=== PATIENT | female | born 1950 | race American Indian/Alaskan Native ===

== ENCOUNTER 2016-04-18 07:00 | Day surgery (SDC) | payer MEDICARE ==
--- NOTE | 2016-04-18 07:49 | Anesthesia Consultation ---
Anesthesia Consult and Med Hx Date of service: 04/18/16 - Airway Anesthetic Teeth Evaluation: Poor (missing), Chipped ROM Head & Neck: Adequate Mental/Hyoid Distance: Adequate Mallampati Class: Class I Intubation Access Assessment: Good - Pulmonary Exam CTA: Yes - Cardiac Exam Anesthetic Concerns: irregular - Pre-Operative Health Status ASA Pre-Surgery Classification: ASA3 Proposed Anesthetic Plan: MAC - Pre-Anesthesia Comment Pre-Anesthesia Comments: Chrons Disease - Cardiovascular System Hx Hypertension: Yes (Coreg taken this am ) - Central Nervous System Hx Back Pain: Yes (Arthiritis ) - Endocrine Hx Non-Insulin Dependent Diabetes: Yes
--- NOTE | 2016-04-18 07:54 | Anesthesia Day of Surgery ---
Anesthesia Day of Surgery - Day of Surgery Patient Examined: Yes Patient H&P Reviewed: Yes Patient is NPO: Yes Beta Blockers: Yes
[2016-04-18] MEDS ORDERED: NACL 0.9% 1000 ML 1,000 ML IV SCH (08:00)
--- NOTE | 2016-04-18 09:13 | Post Operative Note ---
Pre-op diagnosis: diarrhea, abd pain, ?h/o crohn's disease Post-op diagnosis: other (poor prep, but mucosa appeared normal including terminal ileum) Findings: poor prep, but normal appearing colon and terminal ileum. no obvious signs of IBD. Procedure: colonoscopy Anesthesia: MAC Surgeon: CIERRA DIAZ Estimated blood loss: minimal Pathology: list (terminal ileum biopsies) Specimen disposition: to lab Condition: stable
--- NOTE | 2016-04-18 09:24 | Post Anesthesia Evaluation ---
- Post Anesthesia Evaluation Patient Participated: Yes Airway Patent: Yes Stable Respiratory Function: Yes Nausea/Vomiting: No Temp > 96.8F: Yes Pain Manageable: Yes Adequeate Hydration: Yes Anesthesia Complications: No Block Receding Appropriately: Not Applicable Patient on Ventilator: No
[2016-04-18 09:43] VITALS: BP 106/68
--- NOTE | 2016-04-18 10:54 | Operative Report ---
PREOPERATIVE DIAGNOSIS: Diarrhea, abdominal pain, questionable history of Crohn's disease. POSTOPERATIVE DIAGNOSES: Poor prep, normal-appearing mucosa in the colon and terminal ileum. ANESTHESIA: Monitored anesthesia care. ESTIMATED BLOOD LOSS: Minimal. COMPLICATIONS: No immediate complications. DESCRIPTION OF PROCEDURE: After consent was obtained, the patient was placed in left lateral decubitus position and standard Fujinon colonoscope was advanced with ease to the terminal ileum. The patient tolerated the procedure well. The views of the mucosa were fair. The quality of prep was poor. FINDINGS: The mucosa in the colon and terminal ileum appeared normal without any obvious signs of IBD. The prep was poor, but no significant lesions were detected. Random biopsies were taken from the terminal ileum. IMPRESSION: Normal colonoscopy without obvious signs of inflammatory bowel syndrome. Poor prep limited detail views of mucosa, so small lesions may have been missed. RECOMMENDATIONS: 1. Followup in GI Clinic as scheduled. 2. Continue surveillance colonoscopy for history of polyp. Given poor prep, consider repeating in 1 year. [facility]# [id number] ANSLEY/ES GUTIERREZ
[2016-04-18] MEDS ORDERED: XYLOCAINE MPF 2% ONE (12:35)
== END 2016-04-18 07:01 | disposition home or self-care (01) ==
LOC: GIO 07:00
PROVIDERS: ATTEND Internal Medicine Gastroenterology
DX: R19.7 Diarrhea, unspecified (principal); R10.84 Generalized abdominal pain; I10 Essential (primary) hypertension; E11.9 Type 2 diabetes mellitus without complications; F17.210 Nicotine dependence, cigarettes, uncomplicated; M19.90 Unspecified osteoarthritis, unspecified site; Z98.51 Tubal ligation status; Z98.890 Other specified postprocedural states; Z80.42 Family history of malignant neoplasm of prostate; Z83.3 Family history of diabetes mellitus; Z82.49 Family history of ischemic heart disease and other diseases of the circulatory system; Z83.71 Family history of colonic polyps; Z83.79 Family history of other diseases of the digestive system; Z72.89 Other problems related to lifestyle
CPT/HCPCS: 45380; 88305; J7030

== ENCOUNTER 2016-04-30 09:08 | Outpatient (CLI) | payer MEDICARE ==
--- NOTE | 2016-04-30 12:20 | Fluoroscopy Report ---
UPPER GI SERIES WITH SMALL BOWEL FOLLOW-THROUGH History: Crohn's disease, abdominal pain Findings: 37 fluoroscopic images were obtained. Deglutition is normal. The esophagus is normal caliber and mucosal pattern throughout. There is no evidence for hiatal hernia or reflux disease. Normal motility. There is a subtle area of mucosal nodularity and narrowing in the antrum of the stomach. This does not obstruct. This may be related to Crohn's disease. Peptic ulcer disease could also be considered. Recommend correlation with endoscopy. The remainder of the stomach is unremarkable. The duodenal bulb and duodenal sweep are normal. No mass, abnormal dilatation or mucosal thickening. Transit time through the small bowel loops is within normal limits at less than 60 minutes. The duodenum, jejunum and ileum are normal caliber and mucosal pattern. Fluoroscopic spot shots of the terminal ileum are normal. No lesions consistent with Crohn's disease are appreciated in the small bowel. Impression: Questionable area of nodularity in the antrum of the stomach which could be related to Crohn's disease or peptic ulcer disease. See above. Normal small bowel follow-through.
== END 2016-04-30 09:09 | disposition home or self-care (01) ==
LOC: FLUORO 09:08
PROVIDERS: ATTEND Internal Medicine Gastroenterology
DX: K50.90 Crohn's disease, unspecified, without complications (principal); R10.84 Generalized abdominal pain
CPT/HCPCS: 74249

== ENCOUNTER 2016-05-15 12:48 | Outpatient (CLI) | payer MEDICARE ==
[2016-05-15 13:23] LABS: Hematocrit 39.1 % (30.3-42.9); Hemoglobin 12.9 gm/dl (10.1-14.3); Mean Corpuscular HGB Conc 33 % (30-34); Mean Corpuscular Hemoglobin 30 pg (28-32); Mean Corpuscular Volume 90 fl (79-97); Platelet Count 381 K/mm3 (140-440); Red Blood Count 4.36 M/mm3 (3.65-5.03); Red Cell Distribution Width 14.1 % (13.2-15.2); White Blood Count 8.9 K/mm3 (4.5-11.0)
[2016-05-15 13:50] LABS: Alanine Aminotransferase 18 units/L (7-56); Albumin 4.2 g/dL (3.9-5); Alkaline Phosphatase 114 units/L (35-129); Anion Gap 17 mmol/L; BUN/Creatinine Ratio 14.44; Bilirubin,Total 0.3 mg/dL (0.1-1.2); Blood Urea Nitrogen 13 mg/dL (7-17); Calcium 9.7 mg/dL (8.4-10.2); Carbon Dioxide 25 mmol/L (22-30); Chloride 101.9 mmol/L (98-107); Glucose 109 mg/dL (65-100); Potassium 3.7 mmol/L (3.6-5.0); Sodium 140 mmol/L (137-145); Total Protein 8.4 g/dL (6.3-8.2)
[2016-05-15 13:53] LABS: Erythrocyte Sedimentation Rate 45 mm/Hr (0-20)
== END 2016-05-15 12:49 | disposition home or self-care (01) ==
LOC: LAB 12:48
PROVIDERS: ATTEND Internal Medicine Gastroenterology
DX: K50.90 Crohn's disease, unspecified, without complications (principal); R10.84 Generalized abdominal pain
CPT/HCPCS: 36415; 80053; 85027; 85652; 86140; 86706

== ENCOUNTER → 2016-05-16 | Day surgery (SDC) | payer MEDICARE ==
[~2016-05-16] MED LIST: DIPRIVAN 10 MG/ML IV ONE; NACL 0.9% 1000 ML 1,000 ML IV SCH; NACL 0.9% 1000 ML 1,000 ML ONE; XYLOCAINE MPF 2% ONE
--- NOTE | 2016-05-16 13:27 | Anesthesia Day of Surgery ---
Anesthesia Day of Surgery - Day of Surgery Patient Examined: Yes Patient H&P Reviewed: Yes Patient is NPO: Yes Beta Blockers: Yes Cardiac Clearance: No Pulmonary Clearance: No
--- NOTE | 2016-05-16 13:27 | Anesthesia Consultation ---
Anesthesia Consult and Med Hx Date of service: 05/16/16 - Airway Anesthetic Teeth Evaluation: Good ROM Head & Neck: Adequate Mental/Hyoid Distance: Adequate Mallampati Class: Class II Intubation Access Assessment: Probably Good - Pulmonary Exam CTA: Yes - Cardiac Exam Cardiac Exam: RRR - Pre-Operative Health Status ASA Pre-Surgery Classification: ASA3 Proposed Anesthetic Plan: MAC - Pulmonary Hx Smoking: Yes (patient reports that she quit 2 months ago) COPD: Yes - Cardiovascular System Hx Hypertension: Yes (Coreg taken this am ) - Central Nervous System Hx Neuromuscular Disorder: Yes (right sciatica; peripheral neuropathy) Hx Back Pain: Yes (Arthiritis ) - Gastrointestinal Hx Gastroesophageal Reflux Disease: Yes - Endocrine Hx Insulin Dependent Diabetes: Yes
[2016-05-17 11:49] VITALS: BP 111/61
--- NOTE | 2016-05-23 09:05 | Post Operative Note ---
Pre-op diagnosis: dyspepsia Post-op diagnosis: other (small gastric erosions, otherwise unremarkable) Findings: Esophagus appeared normal Stomach: small gastric erosions in gastric body otherwise unremarkable. Random biopsies were obtained. Duodenum appeared normal. Procedure: EGD Anesthesia: MAC Surgeon: CIERRA DIAZ Estimated blood loss: minimal Pathology: list (gastric biopsies) Specimen disposition: to lab Condition: stable Disposition: same day
--- NOTE | 2016-05-23 09:55 | Operative Report ---
PROCEDURE: EGD. PREOPERATIVE DIAGNOSIS AND INDICATIONS: Dyspepsia and abdominal pain. POSTOPERATIVE DIAGNOSES: Small gastric erosion, otherwise unremarkable EGD. ANESTHESIA: Monitored anesthesia care. COMPLICATIONS: No immediate complications. ESTIMATED BLOOD LOSS: Minimal. DESCRIPTION OF PROCEDURE: After consent was obtained, the patient was placed in left lateral decubitus position. Standard upper Fujinon scope was advanced with direct vision through the mouth into the second portion of duodenum with ease. The views of mucosa were good. The patient tolerated the procedure well. FINDINGS: Esophagus appeared normal. There is a small gastric erosion in the gastric body. Otherwise, the stomach appeared normal. Random gastric biopsies were obtained to rule out H. pylori. Duodenum appeared normal. IMPRESSION: Small gastric erosion, otherwise unremarkable EGD. RECOMMENDATIONS: 1. Follow up pathology. 2. Avoid NSAID medications. 3. Return to GI clinic in 1 month. JOB# [id number] ANSLEY/ES GUTIERREZ
== END ==
LOC: GIO 06:00
PROVIDERS: ATTEND Internal Medicine Gastroenterology
DX: K29.50 Unspecified chronic gastritis without bleeding (principal); J44.9 Chronic obstructive pulmonary disease, unspecified; I10 Essential (primary) hypertension; E11.42 Type 2 diabetes mellitus with diabetic polyneuropathy; K21.9 Gastro-esophageal reflux disease without esophagitis; M19.90 Unspecified osteoarthritis, unspecified site; M54.30 Sciatica, unspecified side; Z87.891 Personal history of nicotine dependence
CPT/HCPCS: 43239; 82962; J2704; J7030; 88305; 88342

== ENCOUNTER 2017-04-25 08:08 | Outpatient (CLI) | payer MEDICAID, MEDICARE ==
--- NOTE | 2017-04-25 15:49 | Ultrasound Report ---
FINAL REPORT EXAM: US ABDOMEN LIMITED HISTORY: ELEVATED LIVER ENZYMES TECHNIQUE: Grayscale and color doppler ultrasound imaging of the right upper quadrant was performed. PRIORS: None. FINDINGS: Liver: The liver is increased in echogenicity. No focal hepatic lesions or intrahepatic biliary ductal dilation. Gallbladder/Biliary system: No cholelithiasis, gallbladder wall thickening or pericholecystic fluid. Sludge is seen within the gallbladder. The common bile duct measures 5.4 millimeters. Right kidney: The right kidney is normal in echogenicity without hydronephrosis, cyst, mass or calcification. The right kidney measures 10.3 x 4.4 x 5.0 centimeters. Pancreas: The visualized portions of the pancreas demonstrate no focal lesion. Aorta/IVC: The visualized portions of the abdominal aorta and IVC are normal in caliber. Free fluid: None. IMPRESSION: 1. Hepatic steatosis. 2. Gallbladder sludge. No ultrasound evidence of acute cholecystitis.
== END 2017-04-25 08:09 | disposition home or self-care (01) ==
LOC: US 08:08
PROVIDERS: ATTEND Family Medicine
DX: K76.0 Fatty (change of) liver, not elsewhere classified (principal); R74.8 Abnormal levels of other serum enzymes
CPT/HCPCS: 76705

== ENCOUNTER 2017-08-09 09:36 | Outpatient (CLI) | payer MEDICARE ==
[2017-08-09] MEDS ORDERED: KINEVAC IV ONE (11:07)
[2017-08-09] MEDS ORDERED: WATER FOR INJ (PF) 10 ML ONE (11:09)
[2017-08-09] MEDS ORDERED: WATER FOR INJ (PF) IV ONE (11:11)
--- NOTE | 2017-08-09 13:53 | Nuclear Medicine Report ---
Hepatobiliary scan: Examination performed with 5 mCi technetium 99m Choletec. History: Diarrhea nausea abdominal pain. Findings: Uniform distribution of activity is noted in the liver with subsequent clearance into the biliary system. The gallbladder is visualized. No persistence of activity is noted in liver with activity noted in the duodenum with a normal time. Post CCK ejection fraction is 15%. Impression: No cystic or common bile duct obstruction. Ejection fraction 15%.
== END 2017-08-09 09:37 | disposition home or self-care (01) ==
LOC: NM 09:36
PROVIDERS: ATTEND Internal Medicine Gastroenterology
DX: K21.9 Gastro-esophageal reflux disease without esophagitis (principal); R19.7 Diarrhea, unspecified
CPT/HCPCS: 78227; A9537; J2805

== ENCOUNTER 2019-02-23 12:22 | Emergency (ER) | payer MEDICARE ==
--- NOTE | 2019-02-23 13:26 | Emergency Department Report ---
Blank Doc - Documentation Documentation: 69-year-old female that presents with headache, body aches, and weakness. This initial assessment/diagnostic orders/clinical plan/treatment(s) is/are subject to change based on patient's health status, clinical progression and re- assessment by fellow clinical providers in the ED. Further treatment and workup at subsequent clinical providers discretion. Patient/guardians urged not to elope from the ED as their condition may be serious if not clinically assessed and managed. Initial orders include: 1- Patient sent to MAIN ED for further evaluation and treatment 2- labs 3- UA
[2019-02-23 13:27] VITALS: BP 115/58
[2019-02-23 13:55] LABS: Basophils # (Auto) 0.1 K/mm3 (0.0-0.1); Basophils % (Auto) 0.9 % (0.0-1.8); Eosinophils # (Auto) 0.2 K/mm3 (0.0-0.4); Eosinophils % (Auto) 1.6 % (0.0-4.3); Hematocrit 37.9 % (30.3-42.9); Hemoglobin 12.6 gm/dl (10.1-14.3); Lymphocytes # (Auto) 1.8 K/mm3 (1.2-5.4); Lymphocytes % (Auto) 19.5 % (13.4-35.0); Mean Corpuscular HGB Conc 33 % (30-34); Mean Corpuscular Volume 91 fl (79-97); Monocytes # (Auto) 0.7 K/mm3 (0.0-0.8); Monocytes % (Auto) 7.2 % (0.0-7.3); Platelet Count 404 K/mm3 (140-440); Red Blood Count 4.16 M/mm3 (3.65-5.03); Red Cell Distribution Width 13.5 % (13.2-15.2)
[2019-02-23 14:17] LABS: Alanine Aminotransferase 9 units/L (7-56); Albumin 4.3 g/dL (3.9-5); BUN/Creatinine Ratio 10; Blood Urea Nitrogen 10 mg/dL (7-17); Calcium 9.8 mg/dL (8.4-10.2); Hemolysis Index 3
--- NOTE | 2019-02-23 14:23 | Emergency Department Report ---
HPI - General Chief Complaint: Weakness Time Seen by Provider: 02/23/19 13:23 - HPI HPI: 69-year-old Esme female presents to the emergency department with complaint of a one-week history of some chills and sweats, diarrhea, abdominal pain, headache and very low back pain. At this time her main complaint is the low back pain. She denies any urinary retention, numbness or paresthesias, or any neurological deficits. She also still has a mild generalized headache. No fever. She has a past medical history of arthritis, COPD, GERD, hypertension. Her primary care physician is a Dr. Mena but she has not seen them regarding her symptoms. No recent travel or sick contacts at home. ED Past Medical Hx - Past Medical History Previous Medical History?: Yes Hx Hypertension: Yes (Coreg taken this am ) Hx GERD: Yes Hx Arthritis: Yes Hx COPD: Yes - Surgical History Past Surgical History?: Yes Hx Cholecystectomy: Yes - Social History Smoking Status: Never Smoker Substance Use Type: None - Medications Home Medications: Home Medications Medication Instructions Recorded Confirmed Last Taken Type Bc Arthritis Powder Packet 65 mg PO PRN PRN 04/17/16 05/17/16 Unknown History Calcium 500 mg PO DAILY 04/17/16 05/17/16 04/17/16 History Carvedilol 12.5 mg PO DAILY 04/17/16 05/17/16 05/16/16 History Cod Liver Oil 1 cap PO DAILY 04/17/16 05/17/16 04/17/16 History Gabapentin 600 mg PO DAILY 04/17/16 05/17/16 05/09/16 History Omeprazole 40 mg PO DAILY 04/17/16 05/17/16 05/14/16 History Potassium Gluconate 1 tab PO DAILY 04/17/16 05/17/16 04/16/16 History Promethazine 25 mg PO DAILY 04/17/16 05/17/16 04/16/16 History Triamter/Hctz 37.5-25 mg 1 tab PO DAILY 04/17/16 05/17/16 Unknown History Vitamin D3 1 tab PO DAILY 04/17/16 05/17/16 04/17/16 History metFORMIN 500 mg PO DAILY 04/17/16 05/17/16 05/15/16 History oxyCODONE 15 mg PO PRN PRN 04/17/16 05/17/16 Unknown History amLODIPine 5 mg PO DAILY 04/18/16 05/17/16 05/16/16 History 0400 ED Review of Systems ROS: Stated complaint: BODY ACHE/DIARRHEA/FATIQUE Other details as noted in HPI Constitutional: chills, diaphoresis Eyes: denies: eye pain, vision change ENT: denies: ear pain, throat pain Respiratory: denies: cough, shortness of breath Cardiovascular: denies: chest pain, palpitations Gastrointestinal: abdominal pain, diarrhea Genitourinary: denies: dysuria, discharge Musculoskeletal: back pain. denies: arthralgia Skin: denies: rash, lesions Neurological: headache. denies: numbness, paresthesias Physical Exam - Physical Exam Vital Signs: Vital Signs 02/23/19 13:25 Temperature 98.6 F Pulse Rate 84 Respiratory 20 Rate Blood Pressure 115/58 O2 Sat by Pulse 96 Oximetry Physical Exam: GENERAL: The patient is well-developed well-nourished. HENT: Normocephalic. Atraumatic. Patient has moist mucous membranes. EYES: Extraocular motions are intact. Pupils equal reactive to light bilaterally. No nystagmus. NECK: Supple. Trachea is midline. CHEST/LUNGS: Clear to auscultation. There is no respiratory distress noted. HEART/CARDIOVASCULAR: Regular. There is no tachycardia. There is no murmur. ABDOMEN: Abdomen is soft, nontender. Patient has normal bowel sounds. There is no abdominal distention. SKIN: Skin is warm and dry. NEURO: The patient is awake, alert, and oriented. The patient is cooperative. The patient has no focal neurologic deficits. Normal speech. Cranial nerves II through XII grossly intact. MUSCULOSKELETAL: There is no tenderness or deformity. There is no limitation range of motion. There is no evidence of acute injury. BACK: There is no midline thoracic or lumbar tenderness to palpation, step-off or deformity. The patient has some reproducible lumbar paraspinal and sacral tenderness to palpation but no obvious deformity. ED Course Vital Signs 02/23/19 13:25 Temperature 98.6 F Pulse Rate 84 Respiratory 20 Rate Blood Pressure 115/58 O2 Sat by Pulse 96 Oximetry ED Medical Decision Making - Lab Data Result diagrams: 02/23/19 13:43 02/23/19 13:43 - Radiology Data Radiology results: report reviewed CT HEAD WITHOUT CONTRAST INDICATION / CLINICAL INFORMATION: Headache for 24 hours.. TECHNIQUE: Axial imaging performed from the skull apex through the skull base without the use of contrast. Sagittal and coronal reformatted images. All CT scans at this location are performed using CT dose reduction for ALARA by means of automated exposure control. COMPARISON: None available. FINDINGS: CEREBRAL PARENCHYMA: No significant abnormality. No acute territorial infarct. HEMORRHAGE: None. EXTRA-AXIAL SPACES: Normal in size and morphology for the patient's age. VENTRICULAR SYSTEM: Normal in size and morphology for the patient's age. MIDLINE SHIFT OR HERNIATION: None. CEREBELLUM / BRAINSTEM: No significant abnormality. CALVARIUM: No significant abnormality. ORBITS: Normal as visualized. PARANASAL SINUSES / MASTOID AIR CELLS: Normal as visualized. SOFT TISSUES of HEAD: No significant abnormality. ADDITIONAL FINDINGS: None. IMPRESSION: Cranial CT scan within normal limits. - Medical Decision Making This patient presents with a one-week history of a combination of complaints including mild headache, previous abdominal pain, diarrhea, body aches, chills and sweats without known fever. At the time of my examination she only complains of the mild headache and some low back pain. Other than diarrhea, the patient has no problems with bowel or bladder, numbness or paresthesias or any neurological deficits. No focal, motor or sensory deficits in her cranial nerves are intact. Her back pain is paraspinal to the lumbar region and sacral. Overall the patient appears low suspicion for any of the emergent back conditions such as cauda equina or epidural abscess, or cord compression syndrome. A CT scan of the head without contrast was done secondary to her mild headache that came back showing no acute intracranial process. The patient's labs were unremarkable including CBC, metabolic panel, TSH and urinalysis. This all appears consistent with a viral syndrome. The patient has an appointment in one week with her primary care physician and it was recommended that she try to follow-up in the next 2-3 days. She also will return to the emergency Department with any worsening of her symptoms or any acute distress. Prior to discharge the patient was seen ambulatory in the emergency department and appears stable. - Differential Diagnosis viral syndrome, UTI, fibromyalgia, migraine Critical Care Time: No Critical care attestation.: If time is entered above; I have spent that time in minutes in the direct care of this critically ill patient, excluding procedure time. ED Disposition Clinical Impression: Viral syndrome, Body aches, Generalized weakness Back pain Qualifiers: Back pain location: low back pain Chronicity: unspecified Back pain laterality: bilateral Sciatica presence: without sciatica Qualified Code(s): M54.5 - Low back pain Headache Qualifiers: Headache type: unspecified Headache chronicity pattern: unspecified pattern Intractability: not intractable Qualified Code(s): R51 - Headache Disposition: DC-01 TO HOME OR SELFCARE Is pt being admited?: No Condition: Stable Instructions: Viral Syndrome (ED), Weakness (ED), Back Pain (ED) Additional Instructions: Please follow-up with your primary care physician in the next few days. Return to the emergency Department with any worsening of your symptoms or any acute d istress. Referrals: PRIMARY CARE, [Primary Care Provider] - 2-3 Days Time of Disposition: 16:29
--- NOTE | 2019-02-23 15:19 | Cat Scan Report ---
CT HEAD WITHOUT CONTRAST INDICATION / CLINICAL INFORMATION: Headache for 24 hours.. TECHNIQUE: Axial imaging performed from the skull apex through the skull base without the use of cont rast. Sagittal and coronal reformatted images. All CT scans at this location are performed using CT dose reduction for ALARA by means of automated exposure control. COMPARISON: None available. FINDINGS: CEREBRAL PARENCHYMA: No significant abnormality. No acute territorial infarct. HEMORRHAGE: None. EXTRA-AXIAL SPACES: Normal in size and morphology for the patient's age. VENTRICULAR SYSTEM: Normal in size and morphology for the patient's age. MIDLINE SHIFT OR HERNIATION: None. CEREBELLUM / BRAINSTEM: No significant abnormality. CALVARIUM: No significant abnormality. ORBITS: Normal as visualized. PARANASAL SINUSES / MASTOID AIR CELLS: Normal as visualized. SOFT TISSUES of HEAD: No significant abnormality. ADDITIONAL FINDINGS: None. IMPRESSION: Cranial CT scan within normal limits. Signer Name: Joaquin Jackson Jr, MD Signed: 02/23/2019 3:15 PM Workstation Name: [id number]
[2019-02-23 15:54] LABS: Bilirubin,Urine NEG (Negative); Blood,Urine NEG (Negative); Color,Urine Colorless (Yellow); Protein,Urine <15 mg/dL mg/dL (Negative); RBC,Urine < 1.0 /HPF (0.0-6.0); Urobilinogen,Urine < 2.0 mg/dL (<2.0)
[2019-02-23 16:00] LABS: WBC,Urine < 1.0 /HPF (0.0-6.0)
== END 2019-02-23 16:29 | disposition home or self-care (01) ==
LOC: ED 12:22
DX: B34.9 Viral infection, unspecified (principal); M54.5 Low back pain; R53.1 Weakness; I10 Essential (primary) hypertension; K21.9 Gastro-esophageal reflux disease without esophagitis; M19.90 Unspecified osteoarthritis, unspecified site; J44.9 Chronic obstructive pulmonary disease, unspecified; Z90.49 Acquired absence of other specified parts of digestive tract; Z88.5 Allergy status to narcotic agent; Z79.899 Other long term (current) drug therapy
CPT/HCPCS: 36415; 70450; 80053; 81001; 82962; 84443; 85025

== ENCOUNTER 2019-09-30 12:54 | Outpatient (CLI) | payer MEDICARE ==
--- NOTE | 2019-09-30 14:32 | Mammography Report ---
BILATERAL DIGITAL SCREENING MAMMOGRAM WITH CAD HISTORY: SCREENING MAMMOGRAM TECHNIQUE: Routine digital mammographic imaging performed. This examination was interpreted with jamie hendrix benefit of Computer-aided Detection analysis. COMPARISON: Not available. FINDINGS: Breast Density: predominantly fatty breast parenchymal pattern. Digital CC and MLO views demonstrate no mammographic evidence of malignancy. IMPRESSION: No mammographic evidence of malignancy. If the clinical examination remains stable, recommend bilate ral mammogram in approximately one year. BIRADS 1: Negative. FURTHER INFORMATION: According to the [employer], yearly mammograms are recommend ed starting at age 40 and continuing as long as a woman is in good health. Clinical Breast Exams shou ld be part of a periodic health exam-about every 3 years for women in their 20s and 30s and every yea r for women 40 and over. Breast self exam is an option for women starting in their 20s. Any breast ch ruth noted on a breast self exam should be reported promptly to the patient's healthcare provider. Br east MRI is recommended for women with an approximately 20-25% or greater lifetime risk of breast can cer, including women with a strong family history of breast or ovarian cancer and women who have been treated for Hodgkin's disease. A negative Mammography report should not discourage follow up or biopsy of a clinically significant f inding and/or abnormality. Dense breast tissue may obscure small neoplasms. The patient will be entered into a reminder system with a target due date for the next screening mamm ogram. Signer Name: Rohit Modi MD Signed: 09/30/2019 2:27 PM Workstation Name: [id number]
--- NOTE | 2019-09-30 14:35 | Mammography Report ---
BONE DEXA CLINICAL: Postmenopausal. TECHNIQUE: 2 site bone DEXA performed on an Hologic scanner. FINDINGS: The average BMD of the lumbar spine L1-L4 is 0.798 g/cm squared with a T score of -2.3 and a Z score of -0.8. The average total BMD of the left hip is 0.825 g/cm squared with a T score of -1 and a Z score of -0. 2. IMPRESSION: 1. WHO classification: Osteopenia. 2. 10 year fracture risk. Major osteoporotic fracture-5.1%, hip fracture-0.9% RECOMMENDATION: Clinical correlation and routine screening. Definitions: BMD equal bone mineral density T score = BMD related to peak bone mass of young adult (Sejal expressed an standard deviation) Z score = age-matched BMD expressed in SD World health organization (WHO) diagnostic criteria Normal T score greater than equal to 1 standard deviation Osteopenia T score between -1 and -2.4 standard deviation Osteoporosis T score -2.5 standard deviation or below. Note: BMD is not the only risk factor for fracture; also consider factors such as the patient's age, risk of falling, previous osteoporotic fracture, family history of osteoporotic fractures, current sm oker and low body weight. Z scores are not calculated if greater than 80 years of age. Signer Name: Rohit Modi MD Signed: 09/30/2019 2:30 PM Workstation Name: [id number]
== END 2019-09-30 12:55 | disposition home or self-care (01) ==
LOC: MAMMO 12:54
PROVIDERS: ATTEND Family Medicine
DX: Z12.31 Encounter for screening mammogram for malignant neoplasm of breast (principal); M81.0 Age-related osteoporosis without current pathological fracture
CPT/HCPCS: 77067; 77080

== ENCOUNTER 2020-02-05 09:20 | Outpatient (CLI) | payer MEDICARE ==
--- NOTE | 2020-02-05 10:00 | Ultrasound Report ---
ULTRASOUND RENAL INDICATION: ELEVATED SERUM CREATININE, HYPERTENSION, TYPE 2 DIABETES. ELEVATED SERUM CREATININE, HYPERTENSION, TYPE 2 DIABETES COMPARISON: No relevant prior imaging study available. FINDINGS: RIGHT KIDNEY: Size: 9.4 cm. Echogenicity: Normal. Cortical thickness: 1.2 cm. Hydronephrosis: None. Cyst or mass: None. Stones: None. LEFT KIDNEY: Size: 7.6 cm. Echogenicity: Normal. Cortical thickness: 1.2 cm. Hydronephrosis: None. Cyst or mass: None. Stones: None. Urinary Bladder: No significant abnormality. Free Fluid: None. Additional Findings: The left kidney is a pelvic kidney. IMPRESSION 1. Atrophic changes left kidney. No acute hydronephrosis Signer Name: Beto Tan MD Signed: 02/05/2020 9:55 AM Workstation Name: [id number]
== END 2020-02-05 09:21 | disposition home or self-care (01) ==
LOC: US 09:20
PROVIDERS: ATTEND Family Medicine
DX: N26.1 Atrophy of kidney (terminal) (principal); I10 Essential (primary) hypertension; E11.8 Type 2 diabetes mellitus with unspecified complications; R79.89 Other specified abnormal findings of blood chemistry
CPT/HCPCS: 76770

== ENCOUNTER 2021-03-16 12:19 | Outpatient (CLI) | payer MEDICARE ==
--- NOTE | 2021-03-16 13:42 | XRay Report ---
RIGHT ANKLE 3 VIEWS INDICATION: RIGHT ANKLE PAIN. COMPARISON: None. IMPRESSION: No acute osseous or soft tissue abnormality. No significant DJD. Large plantar spur i s noted. Signer Name: Joaquin Jackson Jr, MD Signed: 03/16/2021 1:37 PM Workstation Name: [id number]
--- NOTE | 2021-03-16 13:43 | Cat Scan Report ---
CT CHEST WITHOUT CONTRAST INDICATION / CLINICAL INFORMATION: SCREENING FOR LUNG CANCER. TECHNIQUE: Axial CT images were obtained through the chest without contrast. Sagittal and coronal reformatted im ages. All CT scans at this location are performed using CT dose reduction for ALARA by means of autom ated exposure control. COMPARISON: None available. FINDINGS: HEART: No significant abnormality. THORACIC AORTA: No significant abnormality. MEDIASTINUM and ARIA: No significant abnormality. LUNGS: No acute air space or interstitial disease. No suspicious pulmonary lesion. PLEURA: No significant pleural effusion. No pneumothorax. SKELETAL SYSTEM: No significant abnormality. UPPER ABDOMEN: No significant abnormality. ADDITIONAL FINDINGS: None. IMPRESSION: Unremarkable CT chest without contrast. Signer Name: Joaquin Jackson Jr, MD Signed: 03/16/2021 1:38 PM Workstation Name: [id number]
== END 2021-03-16 12:20 | disposition home or self-care (01) ==
LOC: CT 12:19
PROVIDERS: ATTEND Family Medicine
DX: Z12.2 Encounter for screening for malignant neoplasm of respiratory organs (principal); M77.31 Calcaneal spur, right foot; Z72.0 Tobacco use
CPT/HCPCS: 71250